=== PATIENT | male | born 1955 | race Caucasian/White ===

== ENCOUNTER 2016-11-08 05:38 | Observation (INO) | payer MEDICARE, OTHER ==
[~2016-11-08] VITALS: Ht 182.9 cm; Wt 66.5 kg
[2016-11-08] VITALS (9 sets, daily range): BP systolic 113–129; BP diastolic 60–66; PULSE 59–72; RESP 16–18; TEMP 97.5–97.8; O2SAT 93–97
[~2016-11-08 05:38] MED LIST: ALPR.5 PO; ASCO500C PO; CHEL50TA PO; MAGN250T11 PO; METO25TA3 PO; NAPR220T95 PO; POTA99TA PO; VITA100064 PO; VITA400C5 PO
[2016-11-08] MEDS ORDERED: POVIDONE IODINE 5% (ANTISEPSIS KIT) 4 APPLICATIONS EACH NARE PRN (06:15)
[2016-11-08] MEDS ORDERED: LACTATED RINGER'S 1000 ML IV PRN (06:15)
[2016-11-08] MEDS ORDERED: METOPROLOL TARTRATE 25 MG TAB PO PRN (06:15)
[2016-11-08] MEDS ORDERED: CHLORHEXIDINE GLUCONATE 2 % 1 PACK (2 CLOTHS) TOPICAL PRN (06:15)
[2016-11-08] MEDS ORDERED: INSULIN HUMAN REGULAR 1,000 UNITS/10 ML VIAL SQ PRN (06:15)
[2016-11-08] MEDS ORDERED: SODIUM CHLORID 0.9% 500 ML IV PRN (06:15)
[2016-11-08 06:24] LABS: AUTOMATED NEUTROPHIL # 17.3 TH/MM3 (1.8-7.7); BASOPHIL # 0.1 TH/MM3 (0-0.2); BASOPHIL % 0.4 % (0.0-2.0); EOSINOPHIL % 0.1 % (0.0-4.0); HEMATOCRIT 42.3 % (39.0-51.0); HEMO FLAGS DIFF FINAL; LYMPHOCYTE # 1.6 TH/MM3 (1.0-4.8); MEAN CELL VOLUME 90.8 FL (80.0-100.0); MEAN CORPUSCULAR HEMOGLOBIN 30.3 PG (27.0-34.0); MEAN CORPUSCULAR HGB CONC 33.3 % (32.0-36.0); MONO % 4.7 % (0.0-8.0); NEUT % 86.8 % (16.0-70.0); PLATELET COUNT 223 TH/MM3 (150-450); RED BLOOD COUNT 4.65 MIL/MM3 (4.50-5.90); RED CELL DISTRIBUTION WIDTH 13.6 % (11.6-17.2)
[2016-11-08 06:54] LABS: APTT (PATIENT) 27.9 SEC (24.3-30.1); INTERNATIONAL NORMALIZED RATIO 1.1 RATIO
[2016-11-08] MEDS ORDERED: LIDOCAINE HCL 2% 50 ML VIAL ONE (07:03)
[2016-11-08] MEDS ORDERED: EPINEPHrine HCL (1:1000) 1 MG/ML VIAL ONE (07:03)
[2016-11-08] MEDS ORDERED: MIDAZOLAM HCL 2 MG/2 ML VIAL ONE (07:25)
[2016-11-08] MEDS ORDERED: *RESP: ALBUTEROL 2.5 MG/3 ML NEB (PRN) PERIprocedural Use ONLY NEB ONE (08:19)
[2016-11-08] MEDS ORDERED: DO NOT ADM ANY ANTICOAGULANT DRUGS PRN (08:45)
--- NOTE | 2016-11-08 09:33 | MR ---
cc: MATT GUTIERREZ M.D. DATE 11/08/2016 PROCEDURE Fiberoptic bronchoscopy flexible REASON FOR BRONCHOSCOPY Cavitary density right upper lobe and lower lobe, rule out underlying malignancy, rule out underlying infectious process. PROCEDURE NOTE Fiberoptic bronchoscopy performed via LMA. Vocal cords intact. Trachea moderately hyperemic. Ailyn sharp. Right mainstem bronchus, right upper, middle and lower lobes, left main bronchus, left upper and lower lobe inspected. No obstructive pathology or mass lesion seen. Washings obtained from both sides of the tracheobronchial tree for routine TB, fungal cultures as well as cytological exam. Cytologic brushings right upper lobe as well as brushings for microbiology using a protective catheter were obtained for cultures as well as cytology. Procedure well tolerated. The patient transferred to recovery in stable condition. IMPRESSION 1. Moderate tracheobronchitis 2. No obstruction or mass lesion. 3. Samples obtained as above. 4. Procedure well tolerated. 5. The patient transferred to recovery in stable condition. Matt Gutierrez MD WWW/MORIS /8:15 AM /9:25 AM
[2016-11-08] MEDS ORDERED: MORPHINE SULFATE 4 MG/ML INJ IV PRN (10:00)
[2016-11-08] MEDS ORDERED: ACETAMINOPHEN/HYDROcodone 325 MG/5 MG TAB PO PRN (10:00)
[2016-11-08] MEDS ORDERED: NALOXONE HCL 0.4 MG/ML AMP IV PRN (10:00)
[2016-11-08] MEDS ORDERED: ONDANSETRON HCL 4 MG/2 ML VIAL IVP PRN (10:00)
[2016-11-08] MEDS ORDERED: ACETAMINOPHEN 325 MG TAB PO PRN ×2 (10:00)
[2016-11-08] MEDS ORDERED: BISACODYL 10 MG SUPP RECTAL PRN (10:00)
[2016-11-08] MEDS ORDERED: NITROGLYCERIN 0.4 MG SL 25 TABS/BTL SL PRN (10:00)
[2016-11-08] MEDS ORDERED: SODIUM CHLORIDE 0.9% FLUSH 10 ML FLUSH IV FLUSH PRN (10:00)
[2016-11-08] MEDS ORDERED: RESP: ALBUTEROL 2.5 MG/IPRATROPIUM 0.5 MG NEB (PRN) NEB (11:00)
[2016-11-08] MEDS ORDERED: *morphine SULFATE 8 MG/ML PERIprocedure ONLY ONE (11:08)
--- NOTE | 2016-11-08 11:09 | RADRPT ---
EXAM DATE/TIME: 11/08/2016 10:20 [facility] COMPARISON: No previous studies available for comparison. INDICATIONS : Patient had bronchoscopy today. MEDICAL HISTORY : None. SURGICAL HISTORY : None. ENCOUNTER: Initial ACUITY: 1 day PAIN SCORE: 0/10 LOCATION: Bilateral chest FINDINGS: 2 portable frontal views of the chest show a parenchymal opacity with cavitation involving the right apex. The remaining lungs are hyperinflated and clear. No effusions. Heart is normal in size. Mildly scoliotic spine. CONCLUSION: 1. Consolidation with suspected cavitation involving the right lung apex. CT scan is suggested to fur ther characterize. Currently differential diagnostic considerations would include an infectious etiol ogy with atypical organisms versus a necrotic malignancy. Jose Juan Fung Jr., MD on November 08, 2016 at 11:06 Board Certified Radiologist. This report was verified electronically.
--- NOTE | 2016-11-08 11:21 | EKG ---
Date Performed: 11/08/2016 Time Performed: 10:29:16 PTAGE: 61 years EKG: Sinus rhythm INDETERMINATE AXIS RIGHT BUNDLE BRANCH BLOCK ABNORMAL ECG PREVIOUS TRACING : 11/08/2016 06.30 DOCTOR: Idris Mcpherson Interpretating Date/Time 11/08/2016 11:19:29
[2016-11-08] MEDS: ALPRAZolam 0.5 MG TAB PO PRN ×3 (11:22→22:52)
[2016-11-08 11:48] LABS: CREATINE KINASE 85 U/L (39-308)
[2016-11-08] MEDS ORDERED: ONDANSETRON HCL 4 MG/2 ML VIAL IV PUSH ONE (12:00)
[2016-11-08] MEDS ORDERED: PROPOFOL 200 MG/20 ML AMP IV ONE ×2 (12:00)
[2016-11-08] MEDS: AZITHROMYCIN 250 MG TAB PO SCH (12:00)
[2016-11-08] MEDS ORDERED: ePHEDrine/NS 25 MG/5 ML SYR IV ONE (12:00)
[2016-11-08] MEDS: RESP: ALBUTEROL 2.5 MG/IPRATROPIUM 0.5 MG NEB (SCH) NEB ×2 (12:00→20:13)
[2016-11-08] MEDS: ACETAMINOPHEN/HYDROcodone 325 MG/7.5 MG TAB PO PRN ×2 (14:00→21:20)
[2016-11-08] MEDS ORDERED: guaiFENesin/CODEINE SYRUP 200 MG/20 MG/10 ML CUP PO PRN (15:00)
--- NOTE | 2016-11-08 15:03 | HHI.HP ---
[facility] Physician Mahesh Sofia MD Admission Diagnosis Diagnoses: Chief Complaint: Chest pain Travel History International Travel<30 Days: No Contact w/Intl Traveler <30 Da: No Traveled to Known Affected Are: No History of Present Illness This is a 61-year-old male with a history of hypoglycemia, hypertension and anxiety. He underwent bronchoscopy earlier today secondary to a cavitary density in the right upper and lower lobes. 2 weeks ago patient developed cold symptoms and was started on Zithromax 2 days ago. Last night he had cold and shaking sensation, shortness of breath with wheezing, chest tightness and upper back and left shoulder pressure discomfort that lasted for 30 minutes. States he had similar episode a week ago. States his discomfort is pleuritic especially when he coughs. When he informed his RN about his symptoms, panman was consulted who requested medical services to manage the patient Review of Systems Except as stated in HPI: all other systems reviewed are Neg Past Family Social History Past Medical History As previously mentioned Past Surgical History Surgery for subdural hematoma and right leg Reported Medications Magnesium, Xanax, Lopressor, naproxen, potassium, zinc, ascorbic acid, vitamin D and E Allergies: Coded Allergies: Peanut (Unverified Allergy, Severe, Anaphylaxis, 11/08/16) Sulfa (Unverified Allergy, Unknown, 11/08/16) Family History Heart disease Social History Continues to smoke. Does not drink. Physical Exam Vital Signs Vital Signs Date Time Temp Pulse Resp B/P Pulse Ox O2 Delivery O2 Flow Rate FiO2 11/08/16 11:00 70 18 107/57 94 Room Air 11/08/16 10:45 98.7 65 16 108/56 92 Nasal Cannula 2 11/08/16 10:15 66 16 108/59 92 Nasal Cannula 2 11/08/16 09:45 70 16 94/55 92 Nasal Cannula 2 11/08/16 09:15 72 16 100/53 92 Nasal Cannula 2 11/08/16 09:00 71 16 95/52 92 Nasal Cannula 2 11/08/16 08:45 74 14 97/51 92 Nasal Cannula 2 11/08/16 08:30 76 15 107/58 92 Nasal Cannula 2 11/08/16 08:20 98.4 78 15 91/53 92 Nasal Cannula 2 11/08/16 06:28 97.8 72 16 129/63 97 Physical Exam GENERAL: This is a well-nourished, well-developed patient, in no apparent distress. SKIN: No rashes, ecchymoses or lesions. Cool and dry. HEAD: Atraumatic. Normocephalic. No temporal or scalp tenderness. EYES: Pupils equal round and reactive. Extraocular motions intact. No scleral icterus. No injection or drainage. ENT: Nose without bleeding, purulent drainage or septal hematoma. Throat without erythema, tonsillar hypertrophy or exudate. Uvula midline. Airway patent. NECK: Trachea midline. No JVD or lymphadenopathy. Supple, nontender, no meningeal signs. CARDIOVASCULAR: Regular rate and rhythm without murmurs, gallops, or rubs. RESPIRATORY: Clear to auscultation. Breath sounds equal bilaterally. No wheezes , rales, or rhonchi. No chest wall tenderness GASTROINTESTINAL: Abdomen soft, non-tender, nondistended. No guarding. MUSCULOSKELETAL: Extremities without clubbing, cyanosis, or edema. No joint tenderness, effusion, or edema noted. No calf tenderness. Negative Homans sign bilaterally. NEUROLOGICAL: Awake and alert. Cranial nerves II through XII intact. Motor and sensory grossly within normal limits. Five out of 5 muscle strength in all muscle groups. Normal speech. Laboratory Laboratory Tests Test 11/08/16 11/08/16 06:10 11:00 White Blood Count 20.0 Red Blood Count 4.65 Hemoglobin 14.1 Hematocrit 42.3 Mean Corpuscular Volume 90.8 Mean Corpuscular Hemoglobin 30.3 Mean Corpuscular Hemoglobin 33.3 Concent Red Cell Distribution Width 13.6 Platelet Count 223 Mean Platelet Volume 6.8 Neutrophils (%) (Auto) 86.8 Lymphocytes (%) (Auto) 8.0 Monocytes (%) (Auto) 4.7 Eosinophils (%) (Auto) 0.1 Basophils (%) (Auto) 0.4 Neutrophils # (Auto) 17.3 Lymphocytes # (Auto) 1.6 Monocytes # (Auto) 0.9 Eosinophils # (Auto) 0.0 Basophils # (Auto) 0.1 CBC Comment DIFF FINAL Differential Comment Prothrombin Time 12.0 Prothromb Time International 1.1 Ratio Activated Partial 27.9 Thromboplast Time Total Creatine Kinase 85 Troponin I LESS THAN 0.02 Date/Time Procedure Status Source Growth 11/08/16 08:03 Gram Stain Received Bronchial Washings Other Pending 11/08/16 08:03 Bronchial Culture Received Bronchial Washings Other Pending 11/08/16 08:03 Fungal Smear Received Bronchial Washings Other Pending 11/08/16 08:03 Fungal Culture Received Bronchial Washings Other Pending 11/08/16 08:03 Bronchial Aspirate Culture Received Bronchial Brushings Right Upper Lobe Pending 11/08/16 08:03 Acid Fast Stain Received Bronchial Washings Other Pending 11/08/16 08:03 Mycobacterial Culture Received Bronchial Washings Other Pending Result Diagram: 11/08/16 0610 Imaging EKG tracing interpreted by me with sinus rhythm and incomplete RBBB no significant change from previous Chest x-ray image interpreted by me with consolidation which is suspected cavitation involving the right lung apex Last Impressions Chest X-Ray 11/08/16 0000 Signed Impressions: Service Date/Time: Tuesday, November 08, 2016 10:20 - CONCLUSION: 1. Consolidation with suspected cavitation involving the right lung apex. CT scan is suggested to further characterize. Currently differential diagnostic considerations would include an infectious etiology with atypical organisms versus a necrotic malignancy. Jose Juan Fung Jr., MD Assessment and Plan Problem List: (1) Chest pain ICD Code: R07.9 Status: Acute (2) Tobacco abuse ICD Code: Z72.0 Status: Chronic (3) Hypertension ICD Code: I10 Status: Chronic Assessment and Plan This is a 61-year-old male with a history of hypoglycemia, hypertension and anxiety. He underwent bronchoscopy earlier today secondary to a cavitary density in the right upper and lower lobes. 2 weeks ago patient developed cold symptoms and was started on Zithromax 2 days ago. Last night he had cold and shaking sensation, shortness of breath with wheezing, chest tightness and upper back and left shoulder pressure discomfort that lasted for 30 minutes. States he had similar episode a week ago. States his discomfort is pleuritic especially when he coughs. When he informed his RN about his symptoms, panman was consulted who requested medical services to manage the patient Chest pain with multiple risk factors including hypertension, family history and tobacco abuse. Trend cardiac enzymes. Aspirin if okay with pulmonary. Continue Lopressor. Cardiology already elevated the patient and plans to do nuclear study in the morning. Pain management with Lortab and IV morphine. Tobacco cessation Cavitary density right upper lobe and lower lobe rule out underlying malignancy versus infectious process. Status post bronchoscopy with moderate tracheobronchitis. Chest x-ray as above. Continue Zithromax and nebulization. Oxygen as needed. Follow-up bronchial washings Leukocytosis secondary to above. Monitor DVT prophylaxis with SCD Discussed Condition With Patient and nursing staff Sarbjit Carrasco MD November 08, 2016 15:03
[2016-11-08 15:34] LABS: BICARBONATE 23.9 MEQ/L (21.0-32.0); POTASSIUM 4.2 MEQ/L (3.5-5.1)
--- NOTE | 2016-11-08 16:20 | MB ---
cc: KLEVER MARIN DATE OF CONSULTATION: 11/08/2016 HISTORY OF PRESENT ILLNESS A 61-year-old white male with a history of hypertension and smoking. He underwent bronchoscopy secondary for a cavitary lesion in the right lung. He has had two episodes of substernal chest pressure radiating into the left shoulder and upper back that lasted about 30 minutes yesterday, last night and also one week ago. He has no previous cardiac history. He currently has no chest pain, no shortness of breath. He is recovering from anesthesia. PAST MEDICAL HISTORY Positive for: 1. Hypertension. 2. Hypoglycemia. 3. Anxiety. 4. History of subdural hematoma. 5. Right leg surgery. MEDICATION 1. Magnesium. 2. Xanax. 3. Lopressor. 4. Naprosyn. 5. Potassium. 6. Zinc. 7. Vitamin C. 8. Vitamin D. 9. Vitamin E. ALLERGIES SULFA, PEANUT ALLERGY. SOCIAL HISTORY The patient is a smoker. He does not drink alcohol. FAMILY HISTORY Positive for heart disease. REVIEW OF SYSTEMS Otherwise negative. PHYSICAL EXAMINATION VITAL SIGNS: Blood pressure 102/53, pulse 72 and regular. HEENT: Negative. NECK: 2+ carotid upstrokes. No bruits. LUNGS: Clear. HEART: Regular with no murmur, gallop or rub. ABDOMEN: Soft. No bruits. EXTREMITIES: Without edema. 2+ distal pulses. NEUROLOGIC: Grossly intact. EKG Was reviewed and showed normal sinus rhythm, normal axis and right bundle branch block, no acute changes. DIAGNOSIS 1. Recent onset angina. 2. Hypertension. 3. Smoking. 4. Right lung cavitary lesion. DISPOSITION Mr. Ventura will be monitored on telemetry with serial enzymes and EKGs. We will obtain adenosine myocardial perfusion study tomorrow to evaluate for ischemia. I recommend therapy for angina and aggressive modification of his cardiac risk factors. I will follow him for cardiology during his hospitalization. MD MATTHIAS Iraheta/ADAN /3:36 PM /3:48 PM GHANSHYAM
[2016-11-08 17:32] LABS: CREATINE KINASE 84 U/L (39-308)
[2016-11-08] MEDS: guaiFENesin E.R. 600 MG TAB PO SCH (21:14)
[2016-11-08] MEDS: METOPROLOL TARTRATE 25 MG TAB PO SCH (21:14)
[2016-11-08] MEDS: SODIUM CHLORIDE 0.9% FLUSH 10 ML FLUSH IV FLUSH SCH (21:15)
[2016-11-08] MEDS: DOCUSATE SODIUM 100 MG CAP PO SCH (21:15)
[2016-11-08 23:15] LABS: MAGNESIUM 2.3 MG/DL (1.5-2.5)
[2016-11-08 23:16] LABS: CREATINE KINASE 80 U/L (39-308)
[2016-11-09] VITALS (19 sets, daily range): BP systolic 109–120; BP diastolic 67–68; PULSE 54–72; RESP 16–18; TEMP 97.5–98; O2SAT 63–96
[2016-11-09 04:43] LABS: AUTOMATED NEUTROPHIL # 12.1 TH/MM3 (1.8-7.7); BASOPHIL % 0.2 % (0.0-2.0); HEMATOCRIT 39.3 % (39.0-51.0); HEMO FLAGS DIFF FINAL; LYMPH % 14.8 % (9.0-44.0); LYMPHOCYTE # 2.3 TH/MM3 (1.0-4.8); MEAN CELL VOLUME 91.7 FL (80.0-100.0); MEAN CORPUSCULAR HGB CONC 32.7 % (32.0-36.0); MONO % 5.5 % (0.0-8.0); NEUT % 79.5 % (16.0-70.0); PLATELET COUNT 226 TH/MM3 (150-450); RED BLOOD COUNT 4.29 MIL/MM3 (4.50-5.90); RED CELL DISTRIBUTION WIDTH 13.8 % (11.6-17.2); WHITE BLOOD COUNT 15.2 TH/MM3 (4.0-11.0)
[2016-11-09 05:11] LABS: BICARBONATE 27.3 MEQ/L (21.0-32.0); POTASSIUM 4.3 MEQ/L (3.5-5.1)
[2016-11-09] MEDS: RESP: ALBUTEROL 2.5 MG/IPRATROPIUM 0.5 MG NEB (SCH) NEB ×3 (07:34→15:09)
[2016-11-09] MEDS ORDERED: MAGNESIUM OXIDE 250 MG PO SCH (09:00)
[2016-11-09] MEDS ORDERED: NON-FORMULARY DRUG (Magnesium Oxide 250 MG) PO SCH (09:00)
[2016-11-09] MEDS ORDERED: NON-FORMULARY DRUG (Potassium 1 TAB) PO SCH (09:00)
[2016-11-09] MEDS ORDERED: PT:POTASSIUM 99 MG PO SCH (09:00)
[2016-11-09] MEDS ORDERED: PNEUMOCOCCAL POLYVALENT INJ 25 MCG/0.5 ML SYR IM ONE (10:00)
[2016-11-09] MEDS ORDERED: INFLUENZA VIRUS VACCINE (QUADRIVALENT) 0.5 ML SYR IM ONE (10:00)
[2016-11-09] MEDS ORDERED: REGADENOSON INJ 0.4 MG/5 ML SYR ONE (10:13)
--- NOTE | 2016-11-09 11:45 | RADRPT ---
EXAM DATE/TIME: 11/09/2016 09:33 [facility] COMPARISON: No previous studies available for comparison. INDICATIONS : Mid chest pain for one day. Angina. DOSE: 27.1 mCi Tc99m Myoview at stress. 8.8 mCi Tc99m Myoview at rest. 0.4 mg Lexiscan STRESS SYMPTOMS: Chest pain and dyspnea. EJECTION FRACTION: 49% MEDICAL HISTORY : Hypertension. SURGICAL HISTORY : Inguinal hernia repair. ENCOUNTER: Initial ACUITY: 1 day PAIN SCALE: 0/10 LOCATION: Bilateral chest TECHNIQUE: The patient underwent pharmacologic stress with infusion of prescribed dose. Continuous ECG tracing was monitored during stress. Gated SPECT imaging was performed after stress and conventional SPECT i maging was performed at rest. The examination was performed on a SPECT/CT scanner, both attenuation and non-corrected datasets were reviewed. FINDINGS: DISTRIBUTION: The maximum perfused segment at stress is in the anterolateral wall. PERFUSION STUDY: The pattern of perfusion at stress is within normal limits. GATED STUDY: There is intact wall motion and thickening without hypokinetic or dyskinetic segments. CONCLUSION: 1. No reversible defects observed to suggest acute ischemia. RISK CATEGORY: Low Jose Juan Fung Jr., MD on November 09, 2016 at 11:37 Board Certified Radiologist. This report was verified electronically.
[2016-11-09] MEDS: METOPROLOL TARTRATE 25 MG TAB PO SCH (11:52)
[2016-11-09] MEDS: DOCUSATE SODIUM 100 MG CAP PO SCH (11:52)
[2016-11-09] MEDS: guaiFENesin E.R. 600 MG TAB PO SCH (11:52)
[2016-11-09] MEDS: AZITHROMYCIN 250 MG TAB PO SCH (11:52)
[2016-11-09] MEDS: SODIUM CHLORIDE 0.9% FLUSH 10 ML FLUSH IV FLUSH SCH (11:53)
[2016-11-09] MEDS: ACETAMINOPHEN/HYDROcodone 325 MG/7.5 MG TAB PO PRN (13:35)
[2016-11-09] MEDS: ALPRAZolam 0.5 MG TAB PO PRN (13:35)
--- NOTE | 2016-11-09 13:42 | EKG ---
Date Performed: 11/08/2016 Time Performed: 22:10:42 PTAGE: 61 years EKG: Sinus rhythm Right bundle branch block Compared to prior tracing no significant change Abnormal ECG PREVIOUS TRACING : 11/08/2016 10.29 DOCTOR: Tommy Toledo Interpretating Date/Time 11/09/2016 13:39:43
--- NOTE | 2016-11-09 13:52 | HHI.PR ---
Subjective Remarks Follow-up chest pain. No further chest pain. He slept well last night. Patient cleared for discharge by cardiology. Discussed with RN Objective Vitals Vital Signs Date Time Temp Pulse Resp B/P Pulse Ox O2 Delivery O2 Flow Rate FiO2 11/09/16 11:30 97.5 72 18 115/68 96 11/09/16 08:30 97.8 68 18 120/67 93 11/09/16 07:34 63 21 11/09/16 07:01 65 11/09/16 06:40 65 11/09/16 05:42 55 11/09/16 04:09 59 11/09/16 03:10 97.7 62 18 109/68 94 11/09/16 03:10 71 11/09/16 02:05 69 11/09/16 01:00 58 11/09/16 00:00 58 11/08/16 23:00 97.8 65 16 125/60 93 11/08/16 23:00 59 11/08/16 22:00 62 11/08/16 21:00 72 11/08/16 20:46 97.5 62 18 116/66 93 11/08/16 20:13 95 21 11/08/16 20:00 68 11/08/16 19:00 59 11/08/16 17:16 18 11/08/16 16:20 66 11/08/16 16:20 97.8 66 18 113/66 97 11/08/16 15:00 67 18 123/64 92 Room Air I/O 11/08/16 11/08/16 11/08/16 11/09/16 11/09/16 11/09/16 07:00 15:00 23:00 07:00 15:00 23:00 Intake Total 1050 ml 960 ml Output Total 350 ml Balance 700 ml 960 ml Intake Oral 400 ml 960 ml IV Total 50 ml Other 600 ml Output Urine Total 350 ml Estimated Blood Loss 0 ml # Voids 3 Result Diagram: 11/09/16 0357 11/09/16 0357 Imaging Last Impressions Myocardial Perfusion Scan Nuc Med 11/09/16 0800 Signed Impressions: Service Date/Time: October 09:33 - CONCLUSION: 1. No reversible defects observed to suggest acute ischemia. RISK CATEGORY: Lalit Fung Jr., MD Chest X-Ray 11/08/16 0000 Signed Impressions: Service Date/Time: Tuesday, November 08, 2016 10:20 - CONCLUSION: 1. Consolidation with suspected cavitation involving the right lung apex. CT scan is suggested to further characterize. Currently differential diagnostic considerations would include an infectious etiology with atypical organisms versus a necrotic malignancy. Jose Juan Fung Jr., MD Objective Remarks GENERAL: This is a well-nourished, well-developed patient, in no apparent distress. SKIN: No rashes, ecchymoses or lesions. Cool and dry. HEAD: Atraumatic. Normocephalic. No temporal or scalp tenderness. EYES: Pupils equal round and reactive. Extraocular motions intact. No scleral icterus. No injection or drainage. ENT: Nose without bleeding, purulent drainage or septal hematoma. Throat without erythema, tonsillar hypertrophy or exudate. Uvula midline. Airway patent. NECK: Trachea midline. No JVD or lymphadenopathy. Supple, nontender, no meningeal signs. CARDIOVASCULAR: Regular rate and rhythm without murmurs, gallops, or rubs. RESPIRATORY: Clear to auscultation. Breath sounds equal bilaterally. No wheezes , rales, or rhonchi. No chest wall tenderness GASTROINTESTINAL: Abdomen soft, non-tender, nondistended. No guarding. MUSCULOSKELETAL: Extremities without clubbing, cyanosis, or edema. No joint tenderness, effusion, or edema noted. No calf tenderness. Negative Homans sign bilaterally. NEUROLOGICAL: Awake and alert. Cranial nerves II through XII intact. Motor and sensory grossly within normal limits. Five out of 5 muscle strength in all muscle groups. Normal speech. Procedures bronch A/P Problem List: (1) Chest pain ICD Code: R07.9 Status: Acute (2) Tobacco abuse ICD Code: Z72.0 Status: Chronic (3) Hypertension ICD Code: I10 Status: Chronic Assessment and Plan This is a 61-year-old male with a history of hypoglycemia, hypertension and anxiety. He underwent bronchoscopy earlier today secondary to a cavitary density in the right upper and lower lobes. 2 weeks ago patient developed cold symptoms and was started on Zithromax 2 days ago. Last night he had cold and shaking sensation, shortness of breath with wheezing, chest tightness and upper back and left shoulder pressure discomfort that lasted for 30 minutes. States he had similar episode a week ago. States his discomfort is pleuritic especially when he coughs. When he informed his RN about his symptoms, pathology laboratory director was consulted who requested medical services to manage the patient Chest pain with multiple risk factors including hypertension, family history and tobacco abuse. Rule out for [place]. Nuclear stress test is negative for ischemia. Chest pain likely secondary to tracheal bronchitis. Pain management with Lortab and IV morphine. Tobacco cessation Cavitary density right upper lobe and lower lobe rule out underlying malignancy versus infectious process. Status post bronchoscopy with moderate tracheobronchitis. Chest x-ray as above. Clinically stable. Continue Zithromax and nebulization. Oxygen as needed. Follow-up bronchial washings negative to date Leukocytosis secondary to above. Improving Monitor DVT prophylaxis with SCD Discharge Planning Stable for discharge Sarbjit Carrasco MD November 09, 2016 13:52
--- NOTE | 2016-11-09 14:04 | EKG ---
Date Performed: 11/08/2016 Time Performed: 06:30:35 PTAGE: 61 years EKG: Sinus rhythm , rate 70 Indeterminate axis Right bundle branch block Clinical correlation is recommended NO PRIOR T RACING DOCTOR: Tommy Toledo Interpretating Date/Time 11/09/2016 14:02:05
[2016-11-09] MEDS ORDERED: HYDR-3580 PO (14:17)
[2016-11-09] MEDS ORDERED: MUCI600T PO (14:17)
--- NOTE | 2016-11-09 14:18 | HHI.DCPOC ---
Discharge Care Plan Diagnosis: (1) Chest pain Your Health Problems Are: Difficulty with ADL Exercise Tolerance Goals to Promote Your Health * To prevent worsening of your condition and complications * To maintain your health at the optimal level Directions to Meet Your Goals Take your medications as prescribed Follow your dietary instruction Follow activity as directed Keep your appointments as scheduled Take your immunizations and boosters as scheduled If your symptoms worsen call your PCP, if no PCP go to Urgent Care Center or Emergency Room Smoking is Dangerous to Your Health. Avoid second hand smoke Call the 24-hour hour crisis hotline for domestic abuse at Sarbjit Carrasco MD November 09, 2016 14:18
--- NOTE | 2016-11-09 15:45 | HHI.DS ---
Discharge Summary Admission Date November 08, 2016 at 10:02 Discharge Date: November 09, 2016 Admitting Diagnosis (1) Chest pain ICD Code: R07.9 Diagnosis: Principal (2) Tobacco abuse ICD Code: Z72.0 Diagnosis: Principal (3) Hypertension ICD Code: I10 Diagnosis: Principal Procedures bronch Brief History - From Admission This is a 61-year-old male with a history of hypoglycemia, hypertension and anxiety. He underwent bronchoscopy earlier today secondary to a cavitary density in the right upper and lower lobes. 2 weeks ago patient developed cold symptoms and was started on Zithromax 2 days ago. Last night he had cold and shaking sensation, shortness of breath with wheezing, chest tightness and upper back and left shoulder pressure discomfort that lasted for 30 minutes. States he had similar episode a week ago. States his discomfort is pleuritic especially when he coughs. When he informed his RN about his symptoms, senior integration architect was consulted who requested medical services to manage the patient CBC/BMP: 11/09/16 0357 11/09/16 0357 Significant Findings Laboratory Tests Test 11/08/16 11/08/16 11/08/16 11/08/16 06:10 11:00 16:00 22:32 White Blood Count 20.0 TH/MM3 (4.0-11.0) Mean Platelet Volume 6.8 FL (7.0-11.0) Neutrophils (%) (Auto) 86.8 % (16.0-70.0) Lymphocytes (%) (Auto) 8.0 % (9.0-44.0) Neutrophils # (Auto) 17.3 TH/MM3 (1.8-7.7) Prothrombin Time 12.0 SEC (9.8-11.6) Chloride Level 108 MEQ/L (98-107) Estimat Glomerular Filtration 87 ML/MIN (>89) Rate Random Glucose 123 MG/DL (74-106) Troponin I LESS THAN 0.02 LESS THAN 0.02 LESS THAN 0.02 NG/ML NG/ML NG/ML (0.02-0.05) (0.02-0.05) (0.02-0.05) Test 11/09/16 03:57 White Blood Count 15.2 TH/MM3 (4.0-11.0) Red Blood Count 4.29 MIL/MM3 (4.50-5.90) Hemoglobin 12.9 GM/DL (13.0-17.0) Neutrophils (%) (Auto) 79.5 % (16.0-70.0) Neutrophils # (Auto) 12.1 TH/MM3 (1.8-7.7) Estimat Glomerular Filtration 87 ML/MIN (>89) Rate Imaging Last Impressions Myocardial Perfusion Scan Nuc Med 11/09/16 0800 Signed Impressions: Service Date/Time: October 09:33 - CONCLUSION: 1. No reversible defects observed to suggest acute ischemia. RISK CATEGORY: Low Jose Juan Fung Jr., MD Chest X-Ray 11/08/16 0000 Signed Impressions: Service Date/Time: Tuesday, November 08, 2016 10:20 - CONCLUSION: 1. Consolidation with suspected cavitation involving the right lung apex. CT scan is suggested to further characterize. Currently differential diagnostic considerations would include an infectious etiology with atypical organisms versus a necrotic malignancy. Jose Juan Fung Jr., MD PE at Discharge GENERAL: This is a well-nourished, well-developed patient, in no apparent distress. SKIN: No rashes, ecchymoses or lesions. Cool and dry. HEAD: Atraumatic. Normocephalic. No temporal or scalp tenderness. EYES: Pupils equal round and reactive. Extraocular motions intact. No scleral icterus. No injection or drainage. ENT: Nose without bleeding, purulent drainage or septal hematoma. Throat without erythema, tonsillar hypertrophy or exudate. Uvula midline. Airway patent. NECK: Trachea midline. No JVD or lymphadenopathy. Supple, nontender, no meningeal signs. CARDIOVASCULAR: Regular rate and rhythm without murmurs, gallops, or rubs. RESPIRATORY: Clear to auscultation. Breath sounds equal bilaterally. No wheezes , rales, or rhonchi. No chest wall tenderness GASTROINTESTINAL: Abdomen soft, non-tender, nondistended. No guarding. MUSCULOSKELETAL: Extremities without clubbing, cyanosis, or edema. No joint tenderness, effusion, or edema noted. No calf tenderness. Negative Homans sign bilaterally. NEUROLOGICAL: Awake and alert. Cranial nerves II through XII intact. Motor and sensory grossly within normal limits. Five out of 5 muscle strength in all muscle groups. Normal speech. Hospital Course This is a 61-year-old male with a history of hypoglycemia, hypertension and anxiety. He underwent bronchoscopy earlier today secondary to a cavitary density in the right upper and lower lobes. 2 weeks ago patient developed cold symptoms and was started on Zithromax 2 days ago. Last night he had cold and shaking sensation, shortness of breath with wheezing, chest tightness and upper back and left shoulder pressure discomfort that lasted for 30 minutes. States he had similar episode a week ago. States his discomfort is pleuritic especially when he coughs. When he informed his RN about his symptoms, senior integration architect was consulted who requested medical services to manage the patient Chest pain with multiple risk factors including hypertension, family history and tobacco abuse. Rule out for NV. Nuclear stress test is negative for ischemia. Chest pain likely secondary to tracheal bronchitis. Pain management with Lortab and IV morphine. Tobacco cessation Cavitary density right upper lobe and lower lobe rule out underlying malignancy versus infectious process. Status post bronchoscopy with moderate tracheobronchitis. Chest x-ray as above. Clinically stable. Continue Zithromax and nebulization. Oxygen as needed. Follow-up bronchial washings negative to date Leukocytosis secondary to above. Improving Monitor DVT prophylaxis with SCD Pt Condition on Discharge: Stable Discharge Disposition: Discharge Home Discharge Time: > 30 minutes Discharge Instructions DIET: Follow Instructions for: Heart Healthy Diet Activities you can perform: Regular-No Restrictions Activities to Avoid: Driving Follow up Referrals: PCP Follow-up - 2-3 Days Pulmonology - 1 Week New Medications: Guaifenesin ER 12 HR (Mucinex ER 12 HR) 600 Mg Barrie 600 MG PO BID cough #14 TAB Hydrocodone-Acetaminophen (Hydrocodone-Acetaminophen) 7.5-325 mg Tab 1 TAB PO Q8HR PRN PAIN SCALE 6 TO 10 #20 TAB Continued Medications: Alprazolam (Xanax) 0.5 Mg Tab 0.5 MG PO Q6H ANXIETY Ref 0 TAB Ascorbic Acid (Vitamin C) 500 Mg Cap 500 MG PO DAILY Nutritional Supplement Ref 0 CAP Cholecalciferol (Vitamin D) 1,000 Unit Tab 1000 UNITS PO DAILY Nutritional Supplement #1 Ref 0 BOTTLE Magnesium Oxide (Magnesium Oxide) 250 Mg Tab 250 MG PO DAILY Ref 0 TAB Metoprolol Tartrate (Metoprolol Tartrate) 25 Mg Tab 25 MG PO BID #60 Ref 0 TAB Potassium (Potassium) 99 Mg Tab 1 TAB PO DAILY Vitamin E (E-400) 400 Unit Cap 1 CAP PO DAILY Zinc Gluconate (Zinc) 50 Mg Tab 1 TAB PO DAILY Sarbjit Carrasco MD November 09, 2016 15:45
--- NOTE | 2016-11-09 21:27 | PD.CARD.PN ---
Subjective Subjective Remarks No CP or SOB, feels better Objective Vital Signs / I&O Vital Signs Date Time Temp Pulse Resp B/P Pulse Ox O2 Delivery O2 Flow Rate FiO2 11/09/16 16:00 56 11/09/16 15:30 98.0 63 16 118/68 94 11/09/16 15:00 58 11/09/16 14:30 18 11/09/16 14:01 59 11/09/16 13:00 54 11/09/16 12:00 56 11/09/16 11:46 56 11/09/16 11:30 97.5 72 18 115/68 96 11/09/16 08:30 97.8 68 18 120/67 93 11/09/16 08:00 54 11/09/16 07:34 63 21 11/09/16 07:01 65 11/09/16 06:40 65 11/09/16 05:42 55 11/09/16 04:09 59 11/09/16 03:10 97.7 62 18 109/68 94 11/09/16 03:10 71 11/09/16 02:05 69 11/09/16 01:00 58 11/09/16 00:00 58 11/08/16 23:00 97.8 65 16 125/60 93 11/08/16 23:00 59 11/08/16 22:00 62 I/O 11/08/16 11/08/16 11/08/16 11/09/16 11/09/16 11/09/16 07:00 15:00 23:00 07:00 15:00 23:00 Intake Total 1050 ml 960 ml 240 ml Output Total 350 ml 200 ml Balance 700 ml 960 ml 40 ml Intake Oral 400 ml 960 ml 240 ml IV Total 50 ml Other 600 ml Output Urine Total 350 ml 200 ml Estimated Blood Loss 0 ml # Voids 3 1 Physical Exam GENERAL: In NAD SKIN: Warm and dry. HEAD: Normocephalic. EYES: No scleral icterus. No injection or drainage. NECK: Supple, trachea midline. No JVD or lymphadenopathy. CARDIOVASCULAR: Regular rate and rhythm without murmurs, gallops, or rubs. RESPIRATORY: Breath sounds equal bilaterally. No accessory muscle use. GASTROINTESTINAL: Abdomen soft, non-tender, nondistended. MUSCULOSKELETAL: No cyanosis, or edema. Laboratory Laboratory Tests Test 11/08/16 11/09/16 22:32 03:57 Magnesium Level 2.3 MG/DL Total Creatine Kinase 80 U/L Troponin I LESS THAN 0.02 NG/ML White Blood Count 15.2 TH/MM3 Red Blood Count 4.29 MIL/MM3 Hemoglobin 12.9 GM/DL Hematocrit 39.3 % Mean Corpuscular Volume 91.7 FL Mean Corpuscular Hemoglobin 30.0 PG Mean Corpuscular Hemoglobin 32.7 % Concent Red Cell Distribution Width 13.8 % Platelet Count 226 TH/MM3 Mean Platelet Volume 7.0 FL Neutrophils (%) (Auto) 79.5 % Lymphocytes (%) (Auto) 14.8 % Monocytes (%) (Auto) 5.5 % Eosinophils (%) (Auto) 0.0 % Basophils (%) (Auto) 0.2 % Neutrophils # (Auto) 12.1 TH/MM3 Lymphocytes # (Auto) 2.3 TH/MM3 Monocytes # (Auto) 0.8 TH/MM3 Eosinophils # (Auto) 0.0 TH/MM3 Basophils # (Auto) 0.0 TH/MM3 CBC Comment DIFF FINAL Differential Comment Sodium Level 140 MEQ/L Potassium Level 4.3 MEQ/L Chloride Level 102 MEQ/L Carbon Dioxide Level 27.3 MEQ/L Anion Gap 11 MEQ/L Blood Urea Nitrogen 16 MG/DL Creatinine 0.89 MG/DL Estimat Glomerular Filtration 87 ML/MIN Rate Random Glucose 105 MG/DL Calcium Level 8.8 MG/DL Imaging Last Impressions Myocardial Perfusion Scan Nuc Med 11/09/16 0800 Signed Impressions: Service Date/Time: October 09:33 - CONCLUSION: 1. No reversible defects observed to suggest acute ischemia. RISK CATEGORY: Low Jose Juan Fung Jr., MD Chest X-Ray 11/08/16 0000 Signed Impressions: Service Date/Time: Tuesday, November 08, 2016 10:20 - CONCLUSION: 1. Consolidation with suspected cavitation involving the right lung apex. CT scan is suggested to further characterize. Currently differential diagnostic considerations would include an infectious etiology with atypical organisms versus a necrotic malignancy. Jose Juan Fung Jr., MD Assessment and Plan Problem List: (1) Chest pain (2) Hypertension (3) Tobacco abuse Assessment and Plan No recurrent CP. Nuclear stress test with no evidence of ischemia. CP is likely of noncardiac origin. OK to discharge home. F/u w PCP as outpatient. Quadrat,Otakar MD November 09, 2016 21:27
== END 2016-11-09 17:02 | disposition home or self-care (01) ==
LOC: HSDC 05:38 → UNDOADMIN 10:02 → HSDI 10:02 → HCIN 16:07
PROVIDERS: ADMIT Internal Medicine; ATTEND Internal Medicine
DX: J40 Bronchitis, not specified as acute or chronic (principal); J98.4 Other disorders of lung; R07.89 Other chest pain; I10 Essential (primary) hypertension; F41.9 Anxiety disorder, unspecified; J44.9 Chronic obstructive pulmonary disease, unspecified; D72.829 Elevated white blood cell count, unspecified; F17.200 Nicotine dependence, unspecified, uncomplicated; Z88.2 Allergy status to sulfonamides; Z91.010 Allergy to peanuts; Z82.49 Family history of ischemic heart disease and other diseases of the circulatory system
CPT/HCPCS: 31623; 71010; 78452; 80048; 82550; 83735; 84484; 85025; 85610; 85730; 87015; 87070; 87071; 87102; 87116; 87205; 87206; 88112; 93005; 93017; 94640; 94664; A9502; G0378; J2250; J2270; J2405; J2785; J3010; J7613; J0171